=== PATIENT | female | born 1965 | race Hispanic/Latino ===

== ENCOUNTER 2016-05-11 18:05 | Emergency (ER) | payer SELFPAY | END 2016-05-11 18:32 | disposition left against medical advice (07) | LOC: ED 18:05 | DX: R06.02 Shortness of breath (principal); R00.2 Palpitations; R07.9 Chest pain, unspecified; Z53.21 Procedure and treatment not carried out due to patient leaving prior to being seen by health care provider ==

== ENCOUNTER 2017-09-07 19:47 | Emergency (ER) | payer MEDICARE ==
--- NOTE | 2017-09-07 20:15 | Emergency Department Report ---
ED Chest Pain HPI - General Chief Complaint: Dyspnea/Respdistress Stated Complaint: KAMRYN Time Seen by Provider: 09/07/17 20:07 Source: patient Mode of arrival: Ambulatory Limitations: No Limitations - History of Present Illness Initial Comments: 51-year-old female presents to the emergency department via EMS from home with complaint of some generalized chest pain, shortness of breath, wheezing, cough and what appears to be some depression. The patient says that she is currently dealing with "my is dying from lung and bone cancer." This has caused her to have no appetite and she has lost weight and is down to 88 pounds. She has a past medical history of Crohn's disease, AVM of the stomach, COPD but not oxygen dependent, coronary artery disease with 4 stents. She is still a tobacco smoker but denies any illicit drug use. Her primary care doctor is a Dr. Patrick and her diamond sander is Dr Frank. She denies any recent travel. She denies any fever, nausea, vomiting or diaphoresis. She has not taken anything for her symptoms prior to presentation. - Related Data Previous Rx's Medication Instructions Recorded Last Taken Type ALBUTEROL Inhaler [ProAir HFA 2 puff IH QID PRN #1 inhalation 09/07/17 Unknown Rx Inhaler] Allergies Allergy/AdvReac Type Severity Reaction Status Date / Time Sulfa (Sulfonamide Allergy Nausea Verified 09/07/17 19:53 Antibiotics) Heart Score - HEART Score History: Moderately suspicious EKG: Normal Age: 45-65 Risk factors: > 3 risk factors or hx of atherosclerotic disease Troponin: < normal limit HEART Score: 4 - Critical Actions Critical Actions: 4-6 pts:12-16.6% risk of adverse cardiac event. Should be admitted ED Review of Systems ROS: Stated complaint: KAMRYN Other details as noted in HPI Comment: All other systems reviewed and negative Constitutional: denies: chills, fever Eyes: denies: eye pain, eye discharge, vision change ENT: denies: ear pain, throat pain Respiratory: cough, shortness of breath, wheezing Cardiovascular: chest pain. denies: edema Gastrointestinal: denies: abdominal pain, vomiting Genitourinary: denies: dysuria, discharge Musculoskeletal: denies: back pain, joint swelling, arthralgia Skin: denies: rash, lesions Neurological: denies: headache, weakness, paresthesias ED Past Medical Hx - Past Medical History Previous Medical History?: Yes Hx Hypertension: Yes Additional medical history: stents x 4, heart attack - Surgical History Past Surgical History?: No - Social History Smoking Status: Never Smoker Substance Use Type: None - Medications Home Medications: Home Medications Medication Instructions Recorded Confirmed Last Taken Type ALBUTEROL Inhaler [ProAir HFA 2 puff IH QID PRN #1 inhalation 09/07/17 Unknown Rx Inhaler] ED Physical Exam - General Limitations: No Limitations General appearance: alert, anxious - Head Head exam: Present: atraumatic, normocephalic - Eye Eye exam: Present: PERRL, EOMI - ENT ENT exam: Present: normal orophraynx, mucous membranes moist - Neck Neck exam: Present: full ROM, other (trachea is midline) - Respiratory Respiratory exam: Present: wheezes, other (course breath sounds at the chest). Absent: accessory muscle use - Cardiovascular Cardiovascular Exam: Present: regular rate, normal rhythm, normal heart sounds. Absent: systolic murmur, diastolic murmur - GI/Abdominal GI/Abdominal exam: Present: soft. Absent: distended, tenderness, guarding - Neurological Exam Neurological exam: Present: alert, oriented X3, CN II-XII intact. Absent: motor sensory deficit - Psychiatric Psychiatric exam: Present: depressed, anxious - Skin Skin exam: Present: warm, dry, intact ED Course Vital Signs 09/07/17 09/07/17 09/07/17 19:54 20:38 20:48 Temperature 97.6 F Pulse Rate 74 Pulse Rate [ 66 69 Posterior Bilateral Throughout] Respiratory 16 Rate Respiratory 18 18 Rate [Posterior Bilateral Throughout] Blood Pressure 96/57 Blood Pressure [Left] O2 Sat by Pulse 95 Oximetry 09/07/17 21:09 Temperature 97.8 F Pulse Rate 66 Pulse Rate [ Posterior Bilateral Throughout] Respiratory 14 Rate Respiratory Rate [Posterior Bilateral Throughout] Blood Pressure Blood Pressure 132/61 [Left] O2 Sat by Pulse 98 Oximetry - Pulse Oximetry Interpretation Digit-Finger Initial Pulse Oximetry Readin O2 Sat by Pulse Oximetry: 95 Actions Taken: none Additional Comments: Normal PARISH score - Parish Score Age > 65: (0) No Aspirin use within the Past 7 Days: (0) No 3 or more CAD Risk Factors: (1) Yes 2 or more Angina events in past 24 hrs: (1) Yes Known CAD with more than 50% Stenosis: (0) No Elevated Cardiac Markers: (0) No ST Deviation Greater than 0.5mm: (0) No PARISH Score: 2 ED Medical Decision Making - Lab Data Result diagrams: 09/07/17 20:13 09/07/17 20:13 - EKG Data -: EKG Interpreted by Me EKG shows normal: sinus rhythm, axis, intervals, QRS complexes (LVH), ST-T waves Rate: normal - EKG Data When compared to previous EKG there are: previous EKG unavailable Interpretation: LVH - Radiology Data Radiology results: image reviewed interpreted by me: Chest x-ray shows hyperinflation of the lungs consistent with her COPD. No obvious pneumonia or pleural effusions. - Medical Decision Making Chest x-ray does not show any acute process. EKG does not show any signs of ST elevation MO, ischemia or dysrhythmia. Labs so far been unremarkable. She had a first negative troponin and a negative d-dimer. I went and spoke with the patient regarding the labs and imaging results and my plan for admission to the hospital for serial troponins, further evaluation and probable cardiology consultation. However, the patient is refusing admission to the hospital as she does not want to spend any time away from her who is currently dealing with terminal lung and bone cancer. While I do understand her position, I explained to her that without a full cardiology workup that I am unable to rule out myocardial infarction and other concerning possibilities and/or etiologies of her symptoms. She understands that leaving without further workup could result in continued shortness of breath and chest pain, heart attack, respiratory failure, disability, or even . She is awake and alert and has normal mental capacity for decision making. Despite understanding these risks, she still has decided to leave AGAINST MEDICAL ADVICE. She was encouraged to return to the emergency department immediately if she changes her mind about admission, has any worsening of her symptoms and wants reevaluation, or with any acute distress. I have still given her a prescription for an albuterol inhaler to try and assist with her shortness of breath. We discussed her tobacco smoking and smoking cessation. - Differential Diagnosis MO, PE, costochondritis, COPD, anxiety Critical Care Time: No Critical care attestation.: If time is entered above; I have spent that time in minutes in the direct care of this critically ill patient, excluding procedure time. ED Disposition Clinical Impression: Tobacco use disorder Chest pain Qualifiers: Chest pain type: unspecified Qualified Code(s): R07.9 - Chest pain, unspecified Dyspnea Qualifiers: Dyspnea type: shortness of breath Qualified Code(s): R06.02 - Shortness of breath Anemia Qualifiers: Anemia type: unspecified type Qualified Code(s): D64.9 - Anemia, unspecified Disposition: DC-07 LEFT AGAINST MED ADVICE Is pt being admited?: No Condition: Stable Instructions: Chest Pain (ED), Dyspnea (ED) Additional Instructions: Please return to the emergency department immediately if you change your mind about admission and further evaluation. If you decide not to return, I at least encourage you to follow up with your primary care physician and diamond sander. Prescriptions: ALBUTEROL Inhaler [ProAir HFA Inhaler] 2 puff IH QID PRN #1 inhalation PRN Reason: Shortness Of Breath Referrals: JOVON MEJIA MD [Primary Care Provider] - MOE PACHECO MD [Staff Physician] - DAGO Forms: AMA Form Time of Disposition: 21:43
[2017-09-07] MEDS ORDERED: BABY ASPIRIN PO ONE (20:25)
[2017-09-07] MEDS ORDERED: DUONEB *Not for PRN Use IH ONE (20:25)
[2017-09-07 20:30] LABS: Basophils % (Auto) 0.7 % (0.0-1.8); Eosinophils % (Auto) 0.8 % (0.0-4.3); Hematocrit 25.2 % (30.3-42.9); Hemoglobin 8.2 gm/dl (10.1-14.3); Lymphocytes # (Auto) 0.9 K/mm3 (1.2-5.4); Lymphocytes % (Auto) 14.5 % (13.4-35.0); Mean Corpuscular HGB Conc 33 % (30-34); Mean Corpuscular Hemoglobin 32 pg (28-32); Mean Corpuscular Volume 97 fl (79-97); Monocytes # (Auto) 0.5 K/mm3 (0.0-0.8); Monocytes % (Auto) 8.4 % (0.0-7.3); Platelet Count 344 K/mm3 (140-440); Red Blood Count 2.61 M/mm3 (3.65-5.03); Red Cell Distribution Width 13.4 % (13.2-15.2)
[2017-09-07 20:40] LABS: INR 1.03 (0.87-1.13); Partial Thromboplastin Time 33.7 Sec. (24.2-36.6)
[2017-09-07 20:55] LABS: BUN/Creatinine Ratio 58; Blood Urea Nitrogen 29 mg/dL (7-17); Calcium 9.1 mg/dL (8.4-10.2); Hemolysis Index 5
[2017-09-07 20:57] LABS: Alanine Aminotransferase 9 units/L (7-56); Albumin 4.1 g/dL (3.9-5)
[2017-09-07 21:10] VITALS: BP 132/61
[2017-09-07 21:13] LABS: Bilirubin,Direct < 0.2 mg/dL (0-0.2)
--- NOTE | 2017-09-07 22:24 | XRay Report ---
FINAL REPORT PROCEDURE: XR CHEST 1V AP TECHNIQUE: Chest radiograph anteroposterior view. CPT 07127 HISTORY: SOB COMPARISON: No prior studies are available for comparison. FINDINGS: Heart: Normal. Mediastinum/Vessels: Normal. Lungs/Pleural space: Lungs are hyperinflated. There are no confluent infiltrates or mass lesions. Pleural spaces are clear. There is moderate degree elevation of left hemidiaphragm.. Bony thorax: No acute osseous abnormality. Life support devices: None. IMPRESSION: COPD No acute pulmonary process..
== END 2017-09-07 21:55 | disposition left against medical advice (07) ==
LOC: ED 19:47
DX: D64.9 Anemia, unspecified (principal); R07.9 Chest pain, unspecified; R06.02 Shortness of breath; I10 Essential (primary) hypertension; Z72.0 Tobacco use; Z88.2 Allergy status to sulfonamides
CPT/HCPCS: 36415; 71045; 80048; 80074; 84484; 85025; 85379; 85610; 85730; 93005; 93010; 94640